=== PATIENT | female | born 1955 | race Caucasian/White ===

== ENCOUNTER 2017-12-21 09:09 | Outpatient (CLI) | payer OTHER ==
--- NOTE | 2017-12-29 13:12 | MMO ---
BILATERAL SCREENING MAMMOGRAM: Date: 12/21/17 COMPARISON: 11/05/15. HISTORY: Screening mammography. FINDINGS: This patient's mammogram was interpreted with the assistance of computer-aided detection. Stable intramammary node present on the left No dominant mass or architectural distortion. No concern ing microcalcification. Benign calcification noted on the right. IMPRESSION: BIRADS 2: Benign Finding(s) Annual screening mammography recommended. POS: [facility]
== END 2017-12-21 09:10 | disposition home or self-care (01) ==
LOC: SCSMAMMO 09:09
PROVIDERS: ATTEND Family Medicine
DX: Z12.31 Encounter for screening mammogram for malignant neoplasm of breast (principal)
CPT/HCPCS: 77067

== ENCOUNTER 2018-09-27 08:45 | Outpatient (CLI) | payer OTHER ==
--- NOTE | 2018-09-27 10:36 | BD ---
DEXA SCAN: INDICATION: Osteoporosis screening. COMPARISON: None. FINDINGS: Lumbar Spine: BMD (g/cm2) L1 0.982 T-Score: -0.1 Z-Score: 1.4 L2 1.174 T-Score: 1.3 Z-Score: 2.9 L3 1.173 T-Score: 0.8 Z-Score: 2.5 L4 1.194 T-Score: 1.2 Z-Score: 3.0 L1-L4 1.135 T-Score: 0.8 Z-Score: 2.4 Femoral Neck: 0.849 T-Score: 0.0 Z-Score: 1.4 Total Femur: 1.124 T-Score: 1.5 Z-Score: 2.6 Impression: Based upon WHO criteria, the patient's bone mineral density is considered within normal limits. The patient is at low risk for fracture. POS: [facility]
== END 2018-09-27 08:46 | disposition home or self-care (01) ==
LOC: BICMAMMO 08:45
PROVIDERS: ATTEND Family Medicine
DX: Z13.820 Encounter for screening for osteoporosis (principal)
CPT/HCPCS: 77080

== ENCOUNTER 2018-09-29 13:16 | Day surgery (SDC) | payer OTHER ==
[2018-09-28 13:46] VITALS: BMI 26.6
--- NOTE | 2018-09-29 01:08 | HP ---
HISTORY OF PRESENT ILLNESS: This is a 63-year-old female, comes in for a colonoscopy for colon cancer. The patient has a family history of colon cancer. The patient has no surgical history. No history of rectal bleeding .She comes in for a colonoscopy for colon cancer screening. ALLERGIES: HYDROCODONE. MEDICAL ILLNESSES: 1. Hypertension. 2. Hyperlipidemia. 3. Allergic rhinitis. 4. Peripheral vascular disease, status post angioplasty. 5. Chronic acid reflux. 6. IBS. 7. Arthritis. 8. Hysterectomy. PHYSICAL EXAMINATION: VITAL SIGNS: Pulse is 70, blood pressure 150/70. HEENT: Conjunctivae clear. NECK: Supple. CARDIOVASCULAR SYSTEM: First and second heart sounds heard. LUNGS: Clear to auscultation. ABDOMEN: Soft. No organomegaly. No tenderness. No masses. ADMITTING DIAGNOSIS: Colon cancer screening-high risk because of family history. PLAN: Colonoscopy. Job ID: [id number] [facility]
--- NOTE | 2018-09-30 02:43 | OP ---
DATE OF PROCEDURE: 09/29/2018 OPERATIVE PROCEDURE: Colonoscopy. PREOPERATIVE DIAGNOSIS: A 63-year-old female with family history of colon cancer. The patient comes in for colonoscopy for colon cancer screening. POSTOPERATIVE DIAGNOSES: 1. Redundant, tortuous left colon. 2. Occasional sigmoid diverticular disease. 3. Otherwise normal colonoscopy. DESCRIPTION OF PROCEDURE: The patient was placed on her left lateral position and was given sedation by Anesthesia Department. A rectal exam was done before the scope was advanced into the rectum. No lesions felt on rectal exam. A Pentax video colonoscope was introduced into the rectum and advanced all the way to the cecum. The prep is very good. The mucosa appears normal throughout the colon with normal vascular pattern. The appendiceal orifice, ileocecal valve, cecum, no pathology seen. Withdrawal of the scope from the cecum, ascending colon, hepatic flexure, transverse colon, splenic flexure, descending colon, no pathology seen. The patient had very mild sigmoid diverticulosis. Retroflexion of scope in the rectum showed no pathology. DISCHARGE PLANNING: This is a 63-year-old female with family history of colon cancer. The patient came for a colonoscopy. The colonoscopy showed no pathology except for mild diverticular disease. DISCHARGE RECOMMENDATION: 1. The patient is advised to call me if she develops any abdominal pain, hematochezia, fever. 2. High-fiber diet. 3. Repeat colonoscopy in 3 years , because of family history of colon cancer. Job ID: [id number] [facility]
== END 2018-09-29 17:08 ==
LOC: SDC 13:16
PROVIDERS: ATTEND Internal Medicine Gastroenterology
PROC: 0DJD8ZZ Inspection of Lower Intestinal Tract, Via Natural or Artificial Opening Endoscopic (ICD-10-PCS; principal; 2018-09-29)
DX: Z12.11 Encounter for screening for malignant neoplasm of colon (principal); K57.30 Diverticulosis of large intestine without perforation or abscess without bleeding; K63.89 Other specified diseases of intestine; F17.210 Nicotine dependence, cigarettes, uncomplicated; I10 Essential (primary) hypertension; E78.5 Hyperlipidemia, unspecified; K21.9 Gastro-esophageal reflux disease without esophagitis; M19.90 Unspecified osteoarthritis, unspecified site; K58.9 Irritable bowel syndrome, unspecified; Z88.5 Allergy status to narcotic agent; Z80.0 Family history of malignant neoplasm of digestive organs; Z79.02 Long term (current) use of antithrombotics/antiplatelets; Z79.82 Long term (current) use of aspirin; Z79.899 Other long term (current) drug therapy
CPT/HCPCS: J0131

== ENCOUNTER 2018-10-19 08:50 | Outpatient (CLI) | payer OTHER ==
--- NOTE | 2018-10-19 11:11 | CT ---
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 Technique: Low dose screening CT examination of the chest obtained without contrast media. Images pro vided at 1.25 mm intervals with coronal and sagittal reformatted imaging. FINDINGS: Limited assessment of the upper abdomen demonstrates atherosclerotic calcification of the abdominal a rogerio and its branches. There is no pleural, paracardial or mediastinal fluid seen. There is multifocal atherosclerotic calci fication involving the thoracic aorta and the coronary arteries. Limited assessment of the chest for lymphadenopathy without contrast media is unremarkable. No pneumothorax noted on either side. Left upper lobe: No discrete pulmonary parenchymal mass lesion or nodule noted. Left lower lobe: No discrete pulmonary parenchymal mass lesion or nodule noted. Right upper lobe: No discrete pulmonary parenchymal mass lesion or nodule noted. Right middle lobe: There is a focal areas of increased density involving the inferior medial anterior aspect of the right middle lobe which demonstrates a linear configuration and is unchanged when comp ared to 02-07-13 examination suggesting an area of scar. No discrete pulmonary parenchymal mass lesion or nodule noted within the right middle lobe. Right lower lobe: No discrete pulmonary parenchymal lesion or nodule noted. Review of the osseous structures demonstrates no acute findings. No endobronchial lesion is evident. IMPRESSION: 1. Lung Rads category 1 - negative. Continue annual screening with low dose chest CT in 12 months. 2. Lung Rads category S - atherosclerotic disease including coronary arterial calcification. POS: [facility]
== END 2018-10-19 08:51 | disposition home or self-care (01) ==
LOC: CT 08:50
PROVIDERS: ATTEND Family Medicine
DX: Z87.891 Personal history of nicotine dependence (principal); I25.10 Atherosclerotic heart disease of native coronary artery without angina pectoris; I70.0 Atherosclerosis of aorta
CPT/HCPCS: G0297

== ENCOUNTER 2019-08-29 12:20 | Outpatient (CLI) | payer OTHER ==
--- NOTE | 2019-09-06 09:46 | MMO ---
Bilateral MAMMO Bilat Screen [facility]. CLINICAL HISTORY: Patient is 64 years old and is seen for screening. The patient has no family history of breast cancer. The patient has no personal history of cancer. VIEWS: The views performed were: bilateral craniocaudal with tomosynthesis and bilateral mediolateral oblique with tomosynthesis. FILMS COMPARED: The present examination has been compared to prior imaging studies performed at [facility] on 11/05/2015, at [facility] on 04/04/2013, and at [facility] on 06/20/2014 and 11/05/2015. This study has been interpreted with the assistance of computer-aided detection. MAMMOGRAM FINDINGS: There are scattered fibroglandular densities. There are no suspicious masses, suspicious calcifications, or new areas of architectural distortion. IMPRESSION: THERE IS NO MAMMOGRAPHIC EVIDENCE OF MALIGNANCY. A ROUTINE FOLLOW-UP MAMMOGRAM IN 1 YEAR IS RECOMMENDED. THE RESULTS OF THIS EXAM WERE SENT TO THE PATIENT. ACR BI-RADS Category 1 - Negative MAMMOGRAPHY NOTE: 1. A negative mammogram report should not delay a biopsy if a dominant of clinically suspicious mass is present. 2. Approximately 10% to 15% of breast cancers are not detected by mammography. 3. Adenosis and dense breasts may obscure an underlying neoplasm. Reported by: EMBER HEBERT MD Electonically Signed: [id number]
== END 2019-08-29 12:21 | disposition home or self-care (01) ==
LOC: BICMAMMO 12:20
PROVIDERS: ATTEND Family Medicine
DX: Z12.31 Encounter for screening mammogram for malignant neoplasm of breast (principal)
CPT/HCPCS: 77063; 77067

== ENCOUNTER 2020-09-24 11:09 | Outpatient (CLI) | payer MEDICARE ==
--- NOTE | 2020-09-24 13:52 | MMO ---
Bilateral MAMMO Bilat Screen [facility]. CLINICAL HISTORY: Patient is 65 years old and is seen for screening. The patient has no family history of breast cancer. The patient has no personal history of cancer. VIEWS: The views performed were: bilateral craniocaudal with tomosynthesis and bilateral mediolateral oblique with tomosynthesis. FILMS COMPARED: The present examination has been compared to prior imaging studies performed at [facility] on 11/05/2015, at [facility] on 12/21/2017 and 08/29/2019, and at [facility] on 11/05/2015. This study has been interpreted with the assistance of computer-aided detection. MAMMOGRAM FINDINGS: There are scattered fibroglandular densities. There are no suspicious masses, suspicious calcifications, or new areas of architectural distortion. IMPRESSION: THERE IS NO MAMMOGRAPHIC EVIDENCE OF MALIGNANCY. A ROUTINE FOLLOW-UP MAMMOGRAM IN 1 YEAR IS RECOMMENDED. THE RESULTS OF THIS EXAM WERE SENT TO THE PATIENT. ACR BI-RADS Category 1 - Negative MAMMOGRAPHY NOTE: 1. A negative mammogram report should not delay a biopsy if a dominant of clinically suspicious mass is present. 2. Approximately 10% to 15% of breast cancers are not detected by mammography. 3. Adenosis and dense breasts may obscure an underlying neoplasm. Reported by: LUIS MIGUEL YOUNGER MD Electonically Signed: [id number]
== END 2020-09-24 11:10 | disposition home or self-care (01) ==
LOC: BICMAMMO 11:09
PROVIDERS: ATTEND Family Medicine
DX: Z12.31 Encounter for screening mammogram for malignant neoplasm of breast (principal)
CPT/HCPCS: 77063; 77067

== ENCOUNTER 2021-07-05 13:25 | Outpatient (CLI) | payer MEDICARE, OTHER ==
[~2021-07-05 13:25] MED LIST: Iopamidol 370 76% 100 ML VIAL ONE
== END 2021-07-05 13:26 | disposition home or self-care (01) ==
LOC: CT 13:25
PROVIDERS: ATTEND Internal Medicine Cardiovascular Disease
DX: I70.292 Other atherosclerosis of native arteries of extremities, left leg (principal); I70.92 Chronic total occlusion of artery of the extremities; K76.0 Fatty (change of) liver, not elsewhere classified
CPT/HCPCS: 74174; Q9967

== ENCOUNTER 2021-07-05 14:52 | Inpatient (IN) | payer MEDICARE, OTHER ==
[2021-07-05] MEDS ORDERED: Midazolam HCl 2 mg/2 ml Vial ONE (14:57)
[2021-07-05] MEDS ORDERED: Fentanyl 100 MCG/2 ML VIAL ONE (14:57)
[2021-07-05] MEDS ORDERED: Metoclopramide HCl 10 MG/2 ML VIAL ONE (15:21)
[2021-07-05] MEDS ORDERED: Rocuronium Bromide 10 MG/ML (10ML VIAL) ONE (15:21)
[2021-07-05] MEDS ORDERED: PHENYLEPHRINE-NS 100 MCG/ML 10 ML SYRINGE ONE (15:21)
[2021-07-05] MEDS ORDERED: Lidocaine 1% PF 5 ML VIAL ONE (15:21)
[2021-07-05] MEDS ORDERED: Ketorolac Tromethamine 30 MG/ML VIAL ONE (15:21)
[2021-07-05] MEDS ORDERED: PROPOFOL 200 MG/20 ML VIAL ONE (15:21)
[2021-07-05] MEDS ORDERED: Ondansetron PF 4 MG/2 ML Vial ONE (15:21)
[2021-07-05] MEDS ORDERED: Dexamethasone 20 MG/5 ML VIAL ONE (15:21)
[2021-07-05] MEDS ORDERED: Glycopyrrolate 0.2 MG/ML 5 ML SYRINGE ONE (15:21)
[2021-07-05] MEDS ORDERED: Succinylcholine 200 MG/10 ml SYRINGE FS ONE (15:21)
[2021-07-05] MEDS ORDERED: ePHEDrine 50 MG/ML VIAL ONE (15:21)
[2021-07-05 16:10] LABS: SARS-CoV-2 NAA Rapid Test Not Detected (NotDetected)
[2021-07-05] MEDS ORDERED: Promethazine HCl 25 MG/ML VIAL IM PRN (17:02)
[2021-07-05] MEDS ORDERED: Ondansetron HCl/PF 4 MG/2 ML Vial IVP PRN (17:02)
[2021-07-05] MEDS ORDERED: Promethazine HCl 25 MG/ML VIAL IVPB PRN (17:02)
[2021-07-05] MEDS ORDERED: hydrALAZINE 20 MG/ML VIAL SLOW IVP PRN (18:39)
[2021-07-05] MEDS: Fentanyl 100 MCG/2 ML VIAL SLOW IVP PRN (18:43)
[2021-07-05] MEDS ORDERED: Lactated Ringer's 1,000 ML IV SCH (19:15)
[2021-07-05] MEDS: traMADol HCl 50 MG TAB PO PRN (19:18)
[2021-07-05] MEDS ORDERED: Atorvastatin Calcium 40 MG TAB PO SCH (21:00)
[2021-07-05] MEDS ORDERED: ceFAZolin Sodium/D5W 2 GM in Premix Bag 1 BAG IVPB SCH (22:00)
[2021-07-06] MEDS: ceFAZolin Sodium/D5W 2 GM in Premix Bag 1 BAG IVPB SCH ×2 (00:19→10:43)
[2021-07-06] MEDS: Fentanyl 100 MCG/2 ML VIAL SLOW IVP PRN (00:33)
[2021-07-06 06:25] VITALS: BMI 28.5
[2021-07-06] MEDS ORDERED: Aspirin Chewable 81 MG TAB PO SCH (08:00)
[2021-07-06 08:15] VITALS: TEMP 97.9
[2021-07-06] MEDS ORDERED: Clopidogrel Bisulfate 75 MG TAB PO SCH (09:00)
[2021-07-06] MEDS ORDERED: Amlodipine 5 MG TAB PO SCH (09:00)
[2021-07-06] MEDS ORDERED: Polyethylene Glycol 3350 17 GM Packet PO SCH (09:00)
[2021-07-06] MEDS: traMADol HCl 50 MG TAB PO PRN (10:52)
[2021-07-06 11:33] VITALS: BP 169/75
== END 2021-07-06 11:40 | disposition home or self-care (01) | DRG 253 ==
LOC: SDC 14:52 → SURG A 17:40
PROVIDERS: ADMIT Thoracic Surgery (Cardiothoracic Vascular Surgery); ATTEND Thoracic Surgery (Cardiothoracic Vascular Surgery)
PROC: 04CL0ZZ Extirpation of Matter from Left Femoral Artery, Open Approach (ICD-10-PCS; principal; 2021-07-05)
PROC: 04UL0KZ Supplement Left Femoral Artery with Nonautologous Tissue Substitute, Open Approach (ICD-10-PCS; 2021-07-05)
DX: I97.89 Other postprocedural complications and disorders of the circulatory system, not elsewhere classified (principal); I74.3 Embolism and thrombosis of arteries of the lower extremities; Z20.822 Contact with and (suspected) exposure to COVID-19; I10 Essential (primary) hypertension; E78.5 Hyperlipidemia, unspecified; Z88.5 Allergy status to narcotic agent; Z79.01 Long term (current) use of anticoagulants; Z79.82 Long term (current) use of aspirin; Z79.899 Other long term (current) drug therapy; Z87.891 Personal history of nicotine dependence; Z90.710 Acquired absence of both cervix and uterus; Y83.8 Other surgical procedures as the cause of abnormal reaction of the patient, or of later complication, without mention of misadventure at the time of the procedure
CPT/HCPCS: J1100; J1885; J2250; J2405; J2704; J2765; J3010; J3490; J7120; U0002

== ENCOUNTER 2021-11-20 09:49 | Day surgery (SDC) | payer MEDICARE, OTHER ==
[~2021-11-20 09:49] MED LIST changes: -Iopamidol 370 76% 100 ML VIAL ONE; +Proparacaine 0.5% Opth 15 ML BOT EA EYE PRN
[2021-11-20] MEDS ORDERED: Proparacaine 0.5% Opth 15 ML BOT ONE (10:10)
== END 2021-11-20 11:31 | disposition home or self-care (01) ==
LOC: SDC 09:49
PROVIDERS: ATTEND Ophthalmology
PROC: 089D3ZZ Drainage of Left Iris, Percutaneous Approach (ICD-10-PCS; principal; 2021-11-20)
PROC: 089C3ZZ Drainage of Right Iris, Percutaneous Approach (ICD-10-PCS; 2021-11-20)
DX: H40.2230 Chronic angle-closure glaucoma, bilateral, stage unspecified (principal); I11.9 Hypertensive heart disease without heart failure; I25.2 Old myocardial infarction; G40.909 Epilepsy, unspecified, not intractable, without status epilepticus; Z88.5 Allergy status to narcotic agent

== ENCOUNTER 2022-02-24 11:54 | Outpatient (CLI) | payer MEDICARE, OTHER | END 2022-02-24 11:55 | disposition home or self-care (01) | LOC: BICMAMMO 11:54 | PROVIDERS: ATTEND Family Medicine | DX: Z12.31 Encounter for screening mammogram for malignant neoplasm of breast (principal) | CPT/HCPCS: 77063; 77067 ==

== ENCOUNTER 2022-03-03 09:18 | Outpatient (CLI) | payer MEDICARE, OTHER ==
[2022-03-03] MEDS ORDERED: Iopamidol 370 76% 100 ML VIAL ONE (14:55)
== END 2022-03-03 09:19 | disposition home or self-care (01) ==
LOC: CT 09:18
PROVIDERS: ATTEND Internal Medicine Cardiovascular Disease
DX: I70.213 Atherosclerosis of native arteries of extremities with intermittent claudication, bilateral legs (principal); K76.0 Fatty (change of) liver, not elsewhere classified; E27.8 Other specified disorders of adrenal gland; K57.30 Diverticulosis of large intestine without perforation or abscess without bleeding; Z98.62 Peripheral vascular angioplasty status
CPT/HCPCS: 75635; Q9967

== ENCOUNTER 2022-03-17 16:44 | Outpatient (CLI) | payer MEDICARE, OTHER ==
[2022-03-18 02:24] LABS: SARS-CoV-2 NAA Rapid Test Not Detected (NotDetected)
== END 2022-03-17 16:45 | disposition home or self-care (01) ==
LOC: LABBT 16:44
PROVIDERS: ATTEND Thoracic Surgery (Cardiothoracic Vascular Surgery)
DX: I70.202 Unspecified atherosclerosis of native arteries of extremities, left leg (principal); Z20.822 Contact with and (suspected) exposure to COVID-19
CPT/HCPCS: 80048; 85027; 86850; 86900; 86901; U0003; U0005; U0002

== ENCOUNTER 2022-03-17 16:45 | Inpatient (IN) | payer MEDICARE, OTHER ==
[2022-03-17 16:20] VITALS: BMI 29.4
[2022-03-17 17:39] LABS: Hemoglobin 13.1 g/dL (12.0-15.5); Mean Corpuscular HGB CONC 34.3 g/dL (32.0-36.0); Mean Corpuscular Hemoglobin 30.8 pg (27.0-33.0); Mean Corpuscular Volume 89.9 fl (81.6-98.3); Mean Platelet Volume 9.3 fl (7.4-10.4); Platelet Count 249 10x3/uL (150-450); Red Blood Cell (RBC) Count 4.25 10x6/uL (3.90-5.03); White Blood Cell (WBC) Count 5.6 10x3/uL (3.5-10.5)
[2022-03-17 18:12] LABS: Anion Gap 15 mmol/L (10-20); BUN (Urea Nitrogen) 13 mg/dL (9.8-20.1); Calc. Creatinine Clearance 0 mL/min (70-130); Calcium 9.4 mg/dL (7.8-10.44); Carbon Dioxide 25 mmol/L (23-31); Chloride 104 mmol/L (98-107); Glucose 84 mg/dL (80-115); Potassium 4.3 mmol/L (3.5-5.1); Sodium 140 mmol/L (136-145)
[2022-03-18] MEDS ORDERED: Protamine Sulfate 50 MG/5 ML VIAL ONE (06:54)
[2022-03-18] MEDS ORDERED: Heparin 5,000 UNITS/ML VIAL ONE (06:54)
[2022-03-18] MEDS ORDERED: Lidocaine 1% MPF 2 ML VIAL ONE (09:00)
[2022-03-18] MEDS ORDERED: fentaNYL Citrate/PF 100 MCG/2 ML SYRINGE ONE ×2 (09:28→12:02)
[2022-03-18] MEDS ORDERED: Midazolam HCl 2 mg/2 ml Vial ONE (09:28)
[2022-03-18] MEDS ORDERED: Lidocaine 1% PF 5 ML VIAL ONE (09:45)
[2022-03-18] MEDS ORDERED: PROPOFOL 200 MG/20 ML VIAL ONE (09:45)
[2022-03-18] MEDS ORDERED: Dexamethasone 20 MG/5 ML VIAL ONE (09:45)
[2022-03-18] MEDS ORDERED: PHENYLEPHRINE-NS 100 MCG/ML 10 ML SYRINGE ONE (09:45)
[2022-03-18] MEDS ORDERED: Glycopyrrolate 0.2 MG/ML 5 ML SYRINGE ONE (09:45)
[2022-03-18] MEDS ORDERED: Labetalol HCl 100 MG/20 ML VIAL ONE ×2 (09:45→12:11)
[2022-03-18] MEDS ORDERED: Rocuronium Bromide 10 MG/ML (10ML VIAL) ONE (09:45)
[2022-03-18] MEDS ORDERED: Ondansetron PF 4 MG/2 ML Vial ONE (09:45)
[2022-03-18] MEDS ORDERED: hydrALAZINE 20 MG/ML VIAL SLOW IVP PRN (12:21)
[2022-03-18] MEDS ORDERED: Ondansetron PF 4 MG/2 ML Vial IVP PRN (12:21)
[2022-03-18] MEDS ORDERED: HYDROcodone/Acetaminophen 5/325 mg Tablet PO PRN (12:21)
[2022-03-18] MEDS ORDERED: traMADol HCl 50 MG TAB PO PRN ×2 (12:21)
[2022-03-18] MEDS ORDERED: Acetaminophen 325 MG TAB PO PRN (12:21)
[2022-03-18] MEDS ORDERED: Fentanyl 100 MCG/2 ML VIAL SLOW IVP PRN (12:21)
[2022-03-18] MEDS ORDERED: Fentanyl 100 MCG/2 ML VIAL ONE (12:25)
[2022-03-18] MEDS ORDERED: Ketorolac Tromethamine 30 MG/ML VIAL IVP SCH (12:30)
[2022-03-18] MEDS ORDERED: Ketorolac Tromethamine 30 MG/ML VIAL ONE (12:39)
[2022-03-18] MEDS: Sodium Chloride 0.9% 1,000 ML IV SCH (15:26)
[2022-03-18] MEDS: CEFAZOLIN 2 GM in Sodium Chloride 0.9% 100 ML IVPB SCH (18:04)
[2022-03-18] MEDS: HYDROcodone/Acetaminophen 5/325 mg Tablet PO PRN (22:12)
[2022-03-19] MEDS: CEFAZOLIN 2 GM in Sodium Chloride 0.9% 100 ML IVPB SCH ×2 (02:26→10:39)
[2022-03-19] MEDS: Sodium Chloride 0.9% 1,000 ML IV SCH (02:26)
[2022-03-19] MEDS: HYDROcodone/Acetaminophen 5/325 mg Tablet PO PRN ×3 (02:26→10:43)
[2022-03-19] MEDS ORDERED: Furosemide 20 MG TAB PO SCH (09:00)
[2022-03-19] MEDS ORDERED: Clopidogrel Bisulfate 75 MG TAB PO SCH (09:00)
[2022-03-19] MEDS ORDERED: Atorvastatin Calcium 40 MG TAB PO SCH (09:00)
[2022-03-19] MEDS ORDERED: Ezetimibe 10 MG TAB PO SCH (09:00)
[2022-03-19] MEDS ORDERED: Amlodipine 5 MG TAB PO SCH (09:00)
[2022-03-19] MEDS ORDERED: Aspirin Chewable 81 MG TAB PO SCH (09:00)
[2022-03-19 12:30] VITALS: BP 148/77; TEMP 98.2
== END 2022-03-19 12:25 | disposition home or self-care (01) | DRG 254 ==
LOC: SURG A 03-18 06:47
PROVIDERS: ADMIT Thoracic Surgery (Cardiothoracic Vascular Surgery); ATTEND Thoracic Surgery (Cardiothoracic Vascular Surgery)
PROC: 04CL0ZZ Extirpation of Matter from Left Femoral Artery, Open Approach (ICD-10-PCS; principal; 2022-03-18)
PROC: 04UL0JZ Supplement Left Femoral Artery with Synthetic Substitute, Open Approach (ICD-10-PCS; 2022-03-18)
DX: I70.212 Atherosclerosis of native arteries of extremities with intermittent claudication, left leg (principal); Z20.822 Contact with and (suspected) exposure to COVID-19; I10 Essential (primary) hypertension; F17.210 Nicotine dependence, cigarettes, uncomplicated; E78.5 Hyperlipidemia, unspecified; Z79.899 Other long term (current) drug therapy; Z79.82 Long term (current) use of aspirin; Z90.710 Acquired absence of both cervix and uterus
CPT/HCPCS: 80048; 85027; 86850; 86900; 86901; 87070; 87205; 93005; 93010; C1763; J1100; J1642; J1644; J1885; J2250; J2405; J2704; J2720; J3010; J3490; J7050; U0002; U0003; U0005

== ENCOUNTER 2022-10-30 05:53 | Day surgery (SDC) | payer MEDICARE, OTHER ==
[2022-10-29 11:18] VITALS: BMI 28.1
[2022-10-30] MEDS ORDERED: Bicitra 30 ML UDCUP ONE (06:46)
[2022-10-30] MEDS ORDERED: Neomycin-Polymyxin 1 ML AMP ONE (06:53)
[2022-10-30] MEDS ORDERED: Bupivacaine 0.25% HCL 30 ML VIAL ONE (06:53)
[2022-10-30] MEDS ORDERED: Fentanyl 250 MCG/5 ML VIAL ONE (07:17)
[2022-10-30] MEDS ORDERED: Midazolam HCl 2 mg/2 ml Vial ONE (07:17)
[2022-10-30] MEDS ORDERED: Phenylephrine 10 MG/ML VIAL ONE (07:24)
[2022-10-30] MEDS ORDERED: CEFAZOLIN 1 GM VIAL ONE (07:27)
[2022-10-30] MEDS ORDERED: Sodium Chloride 0.9% 100 ML ONE (07:27)
[2022-10-30] MEDS ORDERED: Lidocaine 1% PF 5 ML VIAL ONE (07:34)
[2022-10-30] MEDS ORDERED: PROPOFOL 200 MG/20 ML VIAL ONE (07:34)
[2022-10-30] MEDS ORDERED: ePHEDrine 50 MG/ML VIAL ONE (07:34)
[2022-10-30] MEDS ORDERED: Succinylcholine Chloride 100 MG/5 ML SYRINGE FS ONE (07:34)
[2022-10-30] MEDS ORDERED: PHENYLEPHRINE-NS 100 MCG/ML 10 ML SYRINGE ONE (07:34)
[2022-10-30] MEDS ORDERED: Ondansetron PF 4 MG/2 ML Vial ONE (07:34)
[2022-10-30] MEDS ORDERED: Dexamethasone 20 MG/5 ML VIAL ONE (07:34)
== END 2022-10-30 10:50 | disposition home or self-care (01) ==
LOC: SDC 05:53
PROVIDERS: ATTEND Urology
PROC: 01HY0MZ Insertion of Neurostimulator Lead into Peripheral Nerve, Open Approach (ICD-10-PCS; principal; 2022-10-30)
DX: N32.81 Overactive bladder (principal); N39.46 Mixed incontinence; E78.5 Hyperlipidemia, unspecified; I10 Essential (primary) hypertension; F17.210 Nicotine dependence, cigarettes, uncomplicated; Z79.02 Long term (current) use of antithrombotics/antiplatelets; Z79.82 Long term (current) use of aspirin; Z79.899 Other long term (current) drug therapy
CPT/HCPCS: 64561; 72220; C1897; J0690; J1100; J2250; J2370; J2405; J2704; J3010; J3490; S0020

== ENCOUNTER 2022-11-07 09:46 | Day surgery (SDC) | payer MEDICARE, OTHER ==
[2022-11-06 09:57] VITALS: BMI 28.1
[2022-11-07] MEDS ORDERED: Propofol 500 MG/50 ML VIAL ONE (14:24)
[2022-11-07] MEDS ORDERED: fentaNYL PF 100 MCG/2 ML SYRINGE ONE (14:24)
[2022-11-07] MEDS ORDERED: Lidocaine 1% (PF) 30 ML VIAL ONE (14:36)
[2022-11-07] MEDS ORDERED: Bupivacaine 0.25% HCL 30 ML VIAL ONE (14:36)
[2022-11-07] MEDS ORDERED: Sodium Chloride 0.9% 100 ML ONE (14:42)
[2022-11-07] MEDS ORDERED: CEFAZOLIN 1 GM VIAL ONE (14:42)
[2022-11-07] MEDS ORDERED: Rocuronium Bromide 10 MG/ML (10ML VIAL) ONE (14:49)
[2022-11-07] MEDS ORDERED: Ondansetron PF 4 MG/2 ML Vial ONE (14:49)
[2022-11-07] MEDS ORDERED: PROPOFOL 200 MG/20 ML VIAL ONE (14:49)
[2022-11-07] MEDS ORDERED: Lidocaine 1% PF 5 ML VIAL ONE (14:49)
[2022-11-07] MEDS ORDERED: Dexamethasone 20 MG/5 ML VIAL ONE (14:49)
[2022-11-07] MEDS ORDERED: Metoprolol Tartrate 5 MG/5 ML VIAL ONE (15:50)
[2022-11-07] MEDS ORDERED: Fentanyl 100 MCG/2 ML VIAL ONE (15:56)
== END 2022-11-07 17:30 | disposition home or self-care (01) ==
LOC: SDC 09:46
PROVIDERS: ATTEND Urology
PROC: 0JH80BZ Insertion of Single Array Stimulator Generator into Abdomen Subcutaneous Tissue and Fascia, Open Approach (ICD-10-PCS; principal; 2022-11-07)
DX: N32.81 Overactive bladder (principal); N39.46 Mixed incontinence; E78.5 Hyperlipidemia, unspecified; I10 Essential (primary) hypertension; F17.210 Nicotine dependence, cigarettes, uncomplicated; I73.9 Peripheral vascular disease, unspecified; Z79.02 Long term (current) use of antithrombotics/antiplatelets; Z79.82 Long term (current) use of aspirin; Z79.899 Other long term (current) drug therapy
CPT/HCPCS: 64590; C1713; C1767; C1787; C1897; J0690; J2001; J2704; J3010; J3490; S0020

== ENCOUNTER 2023-06-01 12:14 | Outpatient (CLI) | payer MEDICARE, OTHER | END 2023-06-01 12:15 | disposition home or self-care (01) | LOC: BICMAMMO 12:14 | PROVIDERS: ATTEND Family Medicine | DX: Z12.31 Encounter for screening mammogram for malignant neoplasm of breast (principal); N64.89 Other specified disorders of breast; Z80.3 Family history of malignant neoplasm of breast | CPT/HCPCS: 77063; 77067 ==

== ENCOUNTER 2023-06-03 08:44 | Outpatient (CLI) | payer MEDICARE, OTHER | END 2023-06-03 08:45 | disposition home or self-care (01) | LOC: BICMAMMO 08:44 | PROVIDERS: ATTEND Family Medicine | DX: R92.8 Other abnormal and inconclusive findings on diagnostic imaging of breast (principal) | CPT/HCPCS: 77065; G0279 ==

== ENCOUNTER 2023-12-07 09:12 | Outpatient (CLI) | payer MEDICARE, OTHER | END 2023-12-07 09:13 | disposition home or self-care (01) | LOC: BICMAMMO 09:12 | PROVIDERS: ATTEND Family Medicine | DX: R92.8 Other abnormal and inconclusive findings on diagnostic imaging of breast (principal) | CPT/HCPCS: 77065; G0279 ==